=== PATIENT | male | born 1930 | race Caucasian/White ===

== ENCOUNTER 2017-07-20 23:01 | Emergency (ER) | payer MEDICARE, OTHER ==
[2017-07-20 23:16] VITALS: BP 107/59; PULSE 75; RESP 18; TEMP 98.1; O2SAT 100
[2017-07-20 23:21] VITALS: O2SAT 100
--- NOTE | 2017-07-20 23:27 | PD ---
HPI Chief Complaint: Medical Clearance Time Seen by Provider: 23:18 Travel History International Travel<30 days: No Contact w/Intl Traveler<30days: No Traveled to known affect area: No History of Present Illness HPI 87 y/o male presents for oxygen saturation in the high 80s. Patient denies specific complaints here other then sore throat but is a poor historian. Review of records sent with the patient showed that he recently had sepsis, pneumonia and a UTI. [facility] Past Medical History Narrative Medical h/o sepsis, uti, peumonia per group home records Past Surgical History Surgical History: Unable to Obtain Social History Tobacco Use: No Allergies-Medications (Allergen,Severity, Reaction): Coded Allergies: Sulfa (Sulfonamide Antibiotics) (Unverified Allergy, Severe, 01/16/17) penicillin G (Unverified Allergy, Severe, 01/16/17) Reported Meds & Prescriptions Reported Meds & Active Scripts Active Reported Tylenol (Acetaminophen) 325 Mg Tab 325 Mg PO Q4H PRN Carbidopa-Levodopa 25-250 Mg Tab 1 Tab PEG QID Protonix Liq (Pantoprazole Sodium) 40 Mg Pkt 40 Mg PEG DAILY Vitamin D3 (Cholecalciferol) 5,000 Unit Cap 5,000 Units PEG DAILY Potassium Chloride Liq (Potassium Chloride) 20 Meq/15 Ml Soln 20 Meq PEG DAILY Folic Acid 0.4 Mg Tab 1 Mg PEG DAILY Docusate Sodium 100 Mg Cap 100 Mg PEG DAILY Finasteride 5 Mg Tab 5 Mg PEG DAILY Do not crush. Bumetanide 2 Mg Tab 2 Mg PEG DAILY Sucralfate 1 Gram Tab 1 Gm PEG TID on empty stomach Aspirin Low Dose (Aspirin) 81 Mg Chew 81 Mg PEG DAILY Doxycycline Hyclate 100 Mg Cap 100 Mg PEG BID Losartan (Losartan Potassium) 25 Mg Tab 75 Mg PEG DAILY Prednisone 5 Mg Tab 5 Mg PEG DAILY Review of Systems ROS Limitations: Poor Historian Physical Exam Exam Limitations: Poor Historian Narrative GENERAL: 87-year-old male in no apparent distress SKIN: Focused skin assessment warm/dry. HEAD: Atraumatic. Normocephalic. EYES: Pupils round. No scleral icterus. No injection or drainage. ENT: No nasal bleeding or discharge. No erythema or exudate noted NECK: Trachea midline. CARDIOVASCULAR: Regular rate and rhythm. RESPIRATORY: No accessory muscle use. Clear to auscultation. Breath sounds equal bilaterally. GASTROINTESTINAL: Abdomen soft, non-tender, nondistended. MUSCULOSKELETAL: No obvious deformities. NEUROLOGICAL: Awake, moves extremities. Normal speech. Data Data Last Documented VS Vital Signs Date Time Temp Pulse Resp B/P (MAP) Pulse Ox O2 Delivery O2 Flow Rate FiO2 07/21/17 00:00 66 18 108/58 (75) 98 Room Air 07/20/17 23:16 98.1 Orders Orders Complete Blood Count With Diff (07/20/17 23:18) Comprehensive Metabolic Panel (07/20/17 23:18) Prothrombin Time / Inr (Pt) (07/20/17 23:18) Act Partial Throm Time (Ptt) (07/20/17 23:18) Lactic Acid Sepsis Protocol (07/20/17 23:18) Urinalysis - C+S If Indicated (07/20/17 23:18) Influenzae A/B Antigen (07/20/17 23:18) Blood Culture (07/20/17 23:18) Chest, Single Ap (07/20/17 23:18) Ecg Monitoring (07/20/17 23:18) Iv Access Insert/Monitor (07/20/17 23:18) Oximetry (07/20/17 23:18) Ed Discharge Order (07/21/17 00:23) Labs Laboratory Tests Test 07/20/17 23:25 White Blood Count 11.1 TH/MM3 Red Blood Count 4.42 MIL/MM3 Hemoglobin 14.0 GM/DL Hematocrit 42.5 % Mean Corpuscular Volume 96.1 FL Mean Corpuscular Hemoglobin 31.7 PG Mean Corpuscular Hemoglobin Concent 33.0 % Red Cell Distribution Width 15.8 % Platelet Count 179 TH/MM3 Mean Platelet Volume 8.9 FL Neutrophils (%) (Auto) 51.4 % Lymphocytes (%) (Auto) 39.4 % Monocytes (%) (Auto) 8.5 % Eosinophils (%) (Auto) 0.2 % Basophils (%) (Auto) 0.5 % Neutrophils # (Auto) 5.7 TH/MM3 Lymphocytes # (Auto) 4.4 TH/MM3 Monocytes # (Auto) 0.9 TH/MM3 Eosinophils # (Auto) 0.0 TH/MM3 Basophils # (Auto) 0.1 TH/MM3 CBC Comment DIFF FINAL Differential Comment Prothrombin Time 10.0 SEC Prothromb Time International Ratio 1.0 RATIO Activated Partial Thromboplast Time 25.6 SEC Urine Color YELLOW Urine Turbidity CLEAR Urine pH 6.5 Urine Specific [place] 1.014 Urine Protein NEG mg/dL Urine Glucose (UA) NEG mg/dL Urine Ketones NEG mg/dL Urine Occult Blood NEG Urine Nitrite NEG Urine Bilirubin NEG Urine Urobilinogen LESS THAN 2.0 MG/DL Urine Leukocyte Esterase NEG Urine RBC LESS THAN 1 /hpf Urine WBC 1 /hpf Microscopic Urinalysis Comment CATH-CULT NOT IND Blood Urea Nitrogen 50 MG/DL Creatinine 1.02 MG/DL Random Glucose 97 MG/DL Total Protein 6.5 GM/DL Albumin 2.9 GM/DL Calcium Level 8.7 MG/DL Alkaline Phosphatase 76 U/L Aspartate Amino Transf (AST/SGOT) 29 U/L Alanine Aminotransferase (ALT/SGPT) 21 U/L Total Bilirubin 0.6 MG/DL Sodium Level 140 MEQ/L Potassium Level 4.7 MEQ/L Chloride Level 99 MEQ/L Carbon Dioxide Level 35.7 MEQ/L Anion Gap 5 MEQ/L Estimat Glomerular Filtration Rate 69 ML/MIN Lactic Acid Level 1.9 mmol/L [facility] Medical Decision Making Medical Screen Exam Complete: Yes Emergency Medical Condition: Yes Medical Record Reviewed: Yes (Past history confirmed) Interpretation(s) CBC & BMP Diagram 07/20/17 23:25 Total Protein 6.5, Albumin 2.9 L, Calcium Level 8.7, Alkaline Phosphatase 76, Aspartate Amino Transf (AST/SGOT) 29, Alanine Aminotransferase (ALT/SGPT) 21, Total Bilirubin 0.6 Last 24 hours Impressions Chest X-Ray 07/20/17 [id number] Signed Impressions: Service Date/Time: Thursday, July 20, 2017 23:43 - CONCLUSION: No acute cardiopulmonary disease. Ida Jon MD Differential Diagnosis Pneumonia, anemia, renal failure, UTI Narrative Course We will check blood work, urinalysis, influenza, chest x-ray and reevaluate ed workup no acute, pulse ox here 100%, discussed with daugther who states can discharge, patient updated Diagnosis Primary Impression: Sore throat Patient Instructions: General Instructions Additional Instructions: return as needed, follow with primary sunday Med/Other Pt SpecificInfo: No Change to Meds Disposition: 03 DISCHARGE TO SNF Condition: Stable Roxann Mckeon MD Jul 20, 2017 23:27
[2017-07-20 23:45] LABS: AUTOMATED NEUTROPHIL # 5.7 TH/MM3 (1.8-7.7); BASOPHIL # 0.1 TH/MM3 (0-0.2); BASOPHIL % 0.5 % (0.0-2.0); EOSINOPHIL % 0.2 % (0.0-4.0); HEMATOCRIT 42.5 % (39.0-51.0); LYMPH % 39.4 % (9.0-44.0); LYMPHOCYTE # 4.4 TH/MM3 (1.0-4.8); MEAN CELL VOLUME 96.1 FL (80.0-100.0); MEAN CORPUSCULAR HEMOGLOBIN 31.7 PG (27.0-34.0); MEAN PLATELET VOLUME 8.9 FL (7.0-11.0); MONO % 8.5 % (0.0-8.0); MONOCYTE # 0.9 TH/MM3 (0-0.9); NEUT % 51.4 % (16.0-70.0); PLATELET COUNT 179 TH/MM3 (150-450); RED BLOOD COUNT 4.42 MIL/MM3 (4.50-5.90); RED CELL DISTRIBUTION WIDTH 15.8 % (11.6-17.2); WHITE BLOOD COUNT 11.1 TH/MM3 (4.0-11.0)
[2017-07-20] MEDS ORDERED: CARB25TA12 PEG (23:51)
[2017-07-20] MEDS ORDERED: SUCR1TAB PEG (23:51)
[2017-07-20] MEDS ORDERED: LOSA25TA PEG (23:51)
[2017-07-20] MEDS ORDERED: BUME2TAB PEG (23:51)
[2017-07-20] MEDS ORDERED: PRED5TAB PEG (23:51)
[2017-07-20] MEDS ORDERED: PROTPAK PEG (23:51)
[2017-07-20] MEDS ORDERED: FINA5TAB2 PEG (23:51)
[2017-07-20] MEDS ORDERED: CHOL5000 PEG (23:51)
[2017-07-20] MEDS ORDERED: FOLI400T PEG (23:51)
[2017-07-20] MEDS ORDERED: TYLE325T PO (23:51)
[2017-07-20] MEDS ORDERED: ASPI81CH6 PEG (23:51)
[2017-07-20] MEDS ORDERED: POTA10SO12 PEG (23:51)
[2017-07-20] MEDS ORDERED: DOCU100C15 PEG (23:51)
[2017-07-20] MEDS ORDERED: DOXY100C PEG (23:51)
--- NOTE | 2017-07-20 23:56 | RADRPT ---
EXAM DATE/TIME: 07/20/2017 23:43 [facility] COMPARISON: No previous studies available for comparison. INDICATIONS : Shortness of breath MEDICAL HISTORY : Congestive heart failure. CVA, Parkinson's, stage 3 kidney disease SURGICAL HISTORY : None. ENCOUNTER: Initial ACUITY: 1 day PAIN SCORE: 7/10 LOCATION: Bilateral chest FINDINGS: The lungs are clear without infiltrate, nodule, or mass. There is no appreciable pleural effusion fo r technique. Heart and mediastinum are unremarkable. Left subclavian transvenous pacer wire is prese nt with tip in the right ventricle. CONCLUSION: No acute cardiopulmonary disease. Ida Jon MD on July 20, 2017 at 23:54 Board Certified Radiologist. This report was verified electronically.
[2017-07-21] VITALS: BP 108/58; PULSE 66; RESP 18; O2SAT 98
[2017-07-21 00:02] LABS: ALBUMIN 2.9 GM/DL (3.4-5.0); ALT (GPT) 21 U/L (12-78); AST (GOT) 29 U/L (15-37); BICARBONATE 35.7 MEQ/L (21.0-32.0); BILIRUBIN, URINE NEG (NEG); BLOOD UREA NITROGEN 50 MG/DL (7-18); BLOOD, URINE NEG (NEG); CALCIUM 8.7 MG/DL (8.5-10.1); CHLORIDE 99 MEQ/L (98-107); CREATININE 1.02 MG/DL (0.60-1.30); GLOMERULAR FILTRATION RATE 69 ML/MIN (>89); GLUCOSE,RANDOM 97 MG/DL (74-106); GLUCOSE,URINE NEG (NEG); KETONE, URINE NEG (NEG); NITRITE,URINE NEG (NEG); PH, URINE 6.5 (5.0-8.5); SODIUM (NA) 140 MEQ/L (136-145); URINE COLOR YELLOW (YELLW/STRAW); URINE LEUKOCYTE ESTERASE NEG (NEG)
[2017-07-21 00:04] LABS: ALKALINE PHOSPHATASE 76 U/L (45-117); TOTAL BILIRUBIN ADULT 0.6 MG/DL (0.2-1.0); TOTAL PROTEIN 6.5 GM/DL (6.4-8.2)
== END 2017-07-21 01:59 ==
LOC: NEPC 23:01
DX: J02.9 Acute pharyngitis, unspecified (principal); R79.89 Other specified abnormal findings of blood chemistry
CPT/HCPCS: 71045; 80053; 81001; 83605; 85025; 85610; 85730; 87040; 87804; 99284